=== PATIENT | male | born 1955 | race Caucasian/White ===

== ENCOUNTER → 2023-11-05 11:00 | Outpatient (BNVA) | payer MEDICARE, MEDICAID, SELFPAY | PROVIDERS: PCP Nurse Practitioner; Referring Provider Nurse Practitioner; Visit Provider Internal Medicine Critical Care Medicine | DX: F17.211 Nicotine dependence, cigarettes, in remission (principal); J43.2 Centrilobular emphysema; R91.1 Solitary pulmonary nodule; R91.8 Other nonspecific abnormal finding of lung field; Z71.6 Tobacco abuse counseling | CPT/HCPCS: 99204 ==